=== PATIENT | male | born 1995 | race Hispanic/Latino ===

== ENCOUNTER 2017-03-11 20:04 | Emergency (ER) | payer SELFPAY ==
[~2017-03-11] VITALS: Ht 177.8 cm; Wt 119.8 kg
[2017-03-11] MEDS ORDERED: CEPHALEXIN500 MG PO (21:50)
[2017-03-11 22:24] VITALS: BP 159/78
== END 2017-03-11 22:10 | disposition home or self-care (01) | DRG 605 ==
LOC: ED 20:04
PROC: 0HQFXZZ Repair Right Hand Skin, External Approach (ICD-10-PCS; principal; 2017-03-11)
DX: S61.210A Laceration without foreign body of right index finger without damage to nail, initial encounter (principal); W26.0XXA Contact with knife, initial encounter; Y93.89 Activity, other specified; Y92.814 Boat as the place of occurrence of the external cause

== ENCOUNTER 2017-12-16 14:15 | Emergency (ER) | payer SELFPAY ==
[~2017-12-16] VITALS: Ht 177.8 cm; Wt 123.3 kg
[~2017-12-16 14:15] MED LIST: CEPHALEXIN500 MG PO
[2017-12-16] MEDS ORDERED: DELTASONE20 MG PO (14:59)
[2017-12-16 15:12] VITALS: BP 149/84
== END 2017-12-16 15:12 | disposition home or self-care (01) | DRG 607 ==
LOC: ED 14:15
DX: L50.0 Allergic urticaria (principal); F17.210 Nicotine dependence, cigarettes, uncomplicated

== ENCOUNTER 2018-12-15 12:55 | Emergency (ER) | payer OTHER ==
[~2018-12-15] VITALS: Ht 177.8 cm; Wt 118.2 kg
[~2018-12-15 12:55] MED LIST changes: +DELTASONE20 MG PO
[2018-12-15 14:14] LABS: IMMATURE GRANULOCYTES 0.3 % (0.0-5.0); MEAN CORPUSCULAR HGB CONC 33.2 g/L CALC (32.0-36.0); NEUT# 6.36 thou/uL (1.82-7.42); RED BLOOD COUNT 5.58 mill/uL (4.70-6.10); RED CELL DISTRI WIDTH 13.8 % (11.5-15.5)
[2018-12-15 14:16] LABS: HEMOGLOBIN 15.6 g/dl (14.0-18.0); MEAN CELL VOLUME 84.2 fL CALC (80.0-100.0)
[2018-12-15 14:30] LABS: ANION GAP 15 (6-22 (CALC)); BILIRUBIN, TOTAL 0.5 mg/dL (0.0-1.4); BUN 24 mg/dL (9-20); BUN/CREATININE RATIO 28 (12-20 (CALC)); CARBON DIOXIDE 27 mmol/l (22-30); CHLORIDE 101 mmol/l (95-108); CREATININE 0.9 mg/dL (0.7-1.3); GFR > 60 ML/MIN (>=60 (CALC)); GFR FOR AFR.AMER. > 60 ML/MIN (>=60 (CALC)); LIPASE 90 u/l (23-300); POTASSIUM 3.9 mmol/l (3.5-5.1); SGOT/AST 42 u/l (17-59); SODIUM 139 mmol/l (137-146); TOTAL PROTEIN 8.6 g/dL (6.3-8.2)
[2018-12-15 14:31] LABS: ALKALINE PHOSPHATASE 81 u/l (38-126)
[2018-12-15 14:39] LABS: URINE BILIRUBIN - DIPSTICK NEGATIVE (NEGATIVE); URINE BLOOD DIPSTICK NEGATIVE (NEGATIVE); URINE COLOR YELLOW; URINE GLUCOSE - DIPSTICK NEGATIVE (NEGATIVE); URINE KETONE NEGATIVE (NEGATIVE); URINE LEUK ESTERASE NEGATIVE (NEGATIVE); URINE NITRITE - DIPSTICK NEGATIVE (Negative); URINE PROTEIN - DIPSTICK NEGATIVE (NEG-TRACE); URINE SPECIFIC GRAVITY 1.025; URINE UROBILINOGEN - DIPSTICK 0.2 E.U./dL (0.2)
[2018-12-15 15:15] VITALS: BP 140/74
== END 2018-12-15 15:15 | disposition home or self-care (01) | DRG 392 ==
LOC: ED 12:55
PROVIDERS: Family Medicine
DX: R10.11 Right upper quadrant pain (principal); R07.81 Pleurodynia; R11.2 Nausea with vomiting, unspecified; K76.0 Fatty (change of) liver, not elsewhere classified; F17.210 Nicotine dependence, cigarettes, uncomplicated